=== PATIENT | male | born 1990 | race Caucasian/White ===

== ENCOUNTER 2017-07-23 09:14 | Emergency (ER) | payer OTHER ==
[~2017-07-23] VITALS: Ht 177.8 cm; Wt 109.0 kg
[~2017-07-23 09:14] MED LIST: ACET-1311 PO
[2017-07-23 09:26] VITALS: TEMP 36.6; Ht 177.8 cm; Wt 109.0 kg
[2017-07-23] MEDS ORDERED: ALBUTEROL HFA 8 GM INHALER INH ONE (09:45)
--- NOTE | 2017-07-23 09:46 | EMERGENCY ROOM VISIT NOTE ---
History Report prepared by Jolene: Radha Anderson Under the Supervision of: Dr. Parveen Diego M.D. First contact with patient: 09:39 Chief Complaint: COUGH Stated Complaint: WEEZING,COUGHING,STUFFY NOSE History of Present Illness The patient is a 26 year old male who presents to the Emergency Room with complaints of a persistent cough for the past four days. The patient states that he feels he has been developing bronchitis. He states that he has been sneezing, coughing, and wheezing. The patient states that he is a smoker. He states that he last had bronchitis 2.5 years ago. The patient denies any history of asthma. He states that his cough is dry, but states that he has brought up some white mucous. The patient reports nasal congestion, but denies any fever, vomiting, or sore throat. Source of History: patient Onset: four days Position: other (global) Quality: other (cough) Timing: other (persistent) Associated Symptoms: No fevers, No sorethroat, No vomiting Note: Associated Symptoms: sneezing, wheezing, nasal congestion Review of Systems See HPI for pertinent positives & negatives. A total of 10 systems reviewed and were otherwise negative. Past Medical & Surgical Medical Problems: (1) FX METATARSAL-CLOSED (2) GOITER NOS (3) Heart murmur (4) Lumbar strain (5) Psoriasis (6) VITAMIN D DEFICIENCY NOS Family History Patient reports no known family medical history. Social History Smoking Status: Current Every Day Smoker Alcohol Use: occasionally Drug Use: none Marital Status: single Housing Status: lives with friends Occupation Status: employed Current/Historical Medications Scheduled Albuterol Hfa (Ventolin Hfa), 3 PUFFS INH Q6H Prednisone (Prednisone), 0 PO DAILY Allergies Coded Allergies: No Known Allergies (Verified , 07/23/17) Physical Exam Vital Signs Date Time Temp Pulse Resp B/P (MAP) Pulse Ox O2 Delivery O2 Flow Rate FiO2 07/23/17 10:40 87 16 149/99 96 07/23/17 09:56 95 Room Air 07/23/17 09:55 71 16 160/84 95 Room Air 07/23/17 09:26 36.6 82 16 164/89 94 Room Air Physical Exam GENERAL: Patient is in no acute distress. HEENT: No acute trauma, normocephalic atraumatic, mucous membranes moist, no nasal congestion, no scleral icterus. NECK: No stridor, no adenopathy, no meningismus, trachea is midline. LUNGS: Bilaterally wheezing, breath sounds equal, no rhonchi, diminished breath sounds bilaterally. HEART: Without murmurs gallops or rubs, regular rate and rhythm. ABDOMEN: Soft, nontender, bowel sounds positive, no hernias, no peritonitis. EXTREMITIES: No cyanosis or edema, full range of motion of all the joints without pain or difficulty, no signs for acute trauma. NEUROLOGIC: Oriented x 3, no acute motor or sensory deficits, no focal weakness. SKIN: No rash, no jaundice, no diaphoresis. Medical Decision & Procedures ER Provider Diagnostic Interpretation: X-ray results as stated below per interpretation by me and the radiologist: CHEST ONE VIEW PORTABLE CLINICAL HISTORY: cough WHEEZING COMPARISON STUDY: 11/01/2014 FINDINGS: The cardiac and mediastinal contours are normal. There is no evidence of focal pulmonary consolidation. There is no evidence of failure. No pleural effusions are visualized.[ IMPRESSION: No active disease in the chest. Electronically signed by: Anmol Pereyra M.D. 07/23/2017 10:14 AM Dictated Date/Time: 07/23/2017 10:14 AM The status of this report is Signed. Draft = Not yet reviewed or approved by Radiologist. Signed = Reviewed and approved by Radiologist. Medications Administered Medications (Trade) Dose Ordered Sig/Felisha Route Start Time Stop Time Status Last Admin Dose Admin Albuterol (Ventolin Hfa Inhaler) 3 puffs NOW ONCE INH 07/23/17 09:45 07/23/17 09:46 DC 07/23/17 09:51 3 PUFFS Prednisone (PredniSONE TAB) 60 mg NOW STAT PO 07/23/17 09:41 07/23/17 09:44 DC 07/23/17 09:51 60 MG ED Course 0940: The patient was evaluated in room B10. A complete history and physical exam was performed. 0941: Ordered Prednisone 60 mg PO. 0945: Ordered Albuterol 3 puffs INH. 1031: I reevaluated the patient and he is resting comfortably. I discussed the exam findings with him and I discussed the treatment plan. He verbalized complete understanding and agreement. He is ready for discharge. Medical Decision The patient is a 26 year old male who presents to the ED with complaints of a persistent cough. Differential diagnoses considered include pneumonia, bronchitis, pneumothorax, CHF, URI. The patient presents with cough. On exam, he was wheezing. He was not febrile or hypoxic. He was not toxic. Chest film shows no pneumonia or CHF, there was no pneumothorax. On exam, he was wheezing bilaterally. I believe the patient has acute bronchitis. He is being started on prednisone and albuterol. Doses of both were given here prior to discharge. The patient was encouraged to return for worsening symptoms. Medication Reconcilliation Current Medication List: was personally reviewed by me Impression Primary Impression: Acute bronchitis Scribe Attestation The scribe's documentation has been prepared under my direction and personally reviewed by me in its entirety. I confirm that the note above accurately reflects all work, treatment, procedures, and medical decision making performed by me. Departure Information Dispostion Home / Self-Care Prescriptions Albuterol Hfa (VENTOLIN HFA) 200 Puffs/36156 Mcg Aers 3 PUFFS INH Q6H, #1 INHALER 2 Refills Prov: Parveen Diego M.D. 07/23/17 Prednisone (Prednisone) 20 Mg Tab 0 PO DAILY, #14 TAB 3 TABS DAILY FOR 2 DAYS, THEN 2 TABS DAILY FOR 2 DAYS, THEN 1 TAB DAILY FOR 2 DAYS, THEN 1/2 TAB DAILY FOR 2 DAYS. Prov: Parveen Diego M.D. 07/23/17 Referrals Omar Grullon M.D. (PCP) Forms HOME CARE DOCUMENTATION FORM, IMPORTANT VISIT INFORMATION Patient Instructions My [facility] Additional Instructions prednisone as directed albuterol 3 puffs every 4 hours return if worsening chest film was ok today
--- NOTE | 2017-07-23 10:16 | DIAGNOSTIC IMAGING REPORT ---
CHEST ONE VIEW PORTABLE CLINICAL HISTORY: cough WHEEZING COMPARISON STUDY: 11/01/2014 FINDINGS: The cardiac and mediastinal contours are normal. There is no evidence of focal pulmonary consolidation. There is no evidence of failure. No pleural effusions are visualized.[ IMPRESSION: No active disease in the chest. Electronically signed by: Anmol Pereyra M.D. 07/23/2017 10:14 AM Dictated Date/Time: 07/23/2017 10:14 AM
[2017-07-23] MEDS ORDERED: VNTHFA/IN INH (10:35)
[2017-07-23] MEDS ORDERED: PRED20TA PO (10:35)
[2017-07-23 10:40] VITALS: BP 149/99; PULSE 87; O2SAT 96
== END 2017-07-23 10:42 | disposition home or self-care (01) ==
LOC: C.EDB 09:16
DX: J20.9 Acute bronchitis, unspecified (principal); F17.200 Nicotine dependence, unspecified, uncomplicated; L40.9 Psoriasis, unspecified